=== PATIENT | male | born 1960 | race Caucasian/White ===

== ENCOUNTER 2023-11-04 05:34 | Observation (INO) | payer BC ==
[2023-10-21 15:10] VITALS: BMI 42.2
[2023-11-04] MEDS ORDERED: Tranexamic Acid 1,000 MG/10 ML VIAL ONE ×3 (06:00→11:23)
[2023-11-04] MEDS ORDERED: Sodium Chloride 0.9% 0 ML ONE (06:00)
[2023-11-04] MEDS ORDERED: Vancomycin (BATCH) 2 GM in Premix 1 BAG IVPB SCH ×2 (06:15→20:00)
[2023-11-04] MEDS ORDERED: Bupivacaine 0.25% HCL 30 ML VIAL ONE (06:24)
[2023-11-04] MEDS ORDERED: Lidocaine 2% PF 5 ML VIAL ONE (06:35)
[2023-11-04] MEDS ORDERED: PROPOFOL 20 ML ONE ×2 (06:35→06:42)
[2023-11-04] MEDS ORDERED: fentaNYL PF 100 MCG/2 ML SYRINGE ONE (06:36)
[2023-11-04] MEDS ORDERED: fentaNYL 50 mcg/mL 1 mL Vial ONE ×4 (07:05→11:21)
[2023-11-04] MEDS ORDERED: Midazolam HCl 2 mg/2 ml Vial ONE (07:06)
[2023-11-04] MEDS ORDERED: CEFAZOLIN 2 GM VIAL ONE (07:17)
[2023-11-04] MEDS ORDERED: Sodium Chloride 0.9% 100 ML ONE (07:17)
[2023-11-04] MEDS ORDERED: Clindamycin/D5W 900 mg/50 ml Premix Bag ONE (07:21)
[2023-11-04] MEDS ORDERED: Clindamycin/D5W 600 mg/50 ml Premix Bag ONE (07:30)
[2023-11-04] MEDS ORDERED: ePHEDrine Sulfate 50 MG/10 ML VIAL ONE (07:32)
[2023-11-04] MEDS ORDERED: PHENYLEPHRINE-NS 100 MCG/ML 10 ML SYRINGE ONE (07:32)
[2023-11-04] MEDS ORDERED: fentaNYL 50 mcg/mL 1 mL Vial SLOW IVP PRN (07:55)
[2023-11-04] MEDS ORDERED: Ondansetron PF 4 MG/2 ML Vial IVP PRN ×2 (08:00→10:47)
[2023-11-04] MEDS ORDERED: Promethazine HCl 25 MG/ML VIAL IM PRN ×2 (08:00→10:47)
[2023-11-04] MEDS ORDERED: traMADol HCl 50 MG TAB PO PRN ×2 (08:00)
[2023-11-04] MEDS ORDERED: Zolpidem Tartrate 5 MG TAB PO PRN ×2 (08:00→10:47)
[2023-11-04] MEDS ORDERED: HYDROcodone/Acetaminophen 10/325 mg Tablet PO PRN ×2 (08:00)
[2023-11-04] MEDS ORDERED: Ropivacaine 0.2% 550 ML 550 ML NERVE BLCK SCH (08:00)
[2023-11-04] MEDS ORDERED: Glycopyrrolate 0.2 MG/ML 5 ML SYRINGE ONE (08:15)
[2023-11-04] MEDS ORDERED: Atropine Sulfate 0.4 mg/1 ml Vial ONE (08:19)
[2023-11-04] MEDS ORDERED: Bupivacaine PF 0.5% 30 ML VIAL ONE (09:53)
[2023-11-04] MEDS ORDERED: EPINEPHrine 1 MG/ML VIAL ONE (09:53)
[2023-11-04] MEDS ORDERED: Lidocaine 1% (PF) 30 ML VIAL ONE (09:53)
[2023-11-04] MEDS ORDERED: Dexamethasone 4 mg/ml Vial ONE (10:09)
[2023-11-04] MEDS ORDERED: Ondansetron PF 4 MG/2 ML Vial ONE (10:09)
[2023-11-04] MEDS ORDERED: diphenhydrAMINE 25 MG CAP PO PRN (10:47)
[2023-11-04] MEDS ORDERED: Acetaminophen 325 MG TAB PO PRN (10:47)
[2023-11-04] MEDS ORDERED: ALPRAZolam 0.5 MG TAB PO PRN (10:49)
[2023-11-04] MEDS ORDERED: Tranexamic Acid 1,000 MG in Sodium Chloride 0.9% 100 ML IVPB SCH (11:00)
[2023-11-04] MEDS: Ketorolac Tromethamine 30 MG (1 mL) VIAL IVP SCH ×3 (13:48→23:36)
[2023-11-04] MEDS: Clindamycin/D5W 900 MG in Premix 1 BAG IVPB SCH ×2 (13:48→19:40)
[2023-11-04] MEDS: Sodium Chloride 0.9% 1,000 ML IV SCH ×2 (13:49→20:28)
[2023-11-04] MEDS: Senokot S 8.6-50 MG TAB PO SCH (20:28)
[2023-11-04] MEDS: Ferrous Gluconate 324 MG TAB PO SCH (20:28)
[2023-11-04] MEDS: Aspirin 81 mg Enteric Coated Tablet PO SCH (20:28)
[2023-11-04] MEDS ORDERED: Nebivolol HCl 5 MG TAB PO SCH (21:00)
[2023-11-05] MEDS: Ketorolac Tromethamine 30 MG (1 mL) VIAL IVP SCH ×2 (04:32→12:08)
[2023-11-05] MEDS: Sodium Chloride 0.9% 1,000 ML IV SCH (04:33)
[2023-11-05 04:48] LABS: Hematocrit 41.9 % (42.0-52.0); Hemoglobin 13.5 g/dL (14.0-18.0); Mean Corpuscular HGB CONC 32.2 g/dL (32.0-36.0); Mean Corpuscular Hemoglobin 30.1 pg (27.0-31.0); Mean Corpuscular Volume 93.5 fl (78.0-98.0); Mean Platelet Volume 10.4 fL (7.4-10.4); Platelet Count 272 10x3/uL (130-400); RBC Distribution Width 12.9 % (11.5-14.5); Red Blood Cell (RBC) Count 4.48 mill/uL (4.70-6.10); White Blood Cell (WBC) Count 15.4 10x3/uL (4.8-10.8)
[2023-11-05 08:44] VITALS: TEMP 97.9
[2023-11-05] MEDS ORDERED: Multivitamin W/ Minerals 1 TAB PO SCH (09:00)
[2023-11-05] MEDS: Aspirin 81 mg Enteric Coated Tablet PO SCH (09:09)
[2023-11-05] MEDS: Senokot S 8.6-50 MG TAB PO SCH (09:09)
[2023-11-05] MEDS: Ferrous Gluconate 324 MG TAB PO SCH (09:09)
[2023-11-05 11:49] VITALS: BP 121/77
== END 2023-11-05 12:33 | disposition home or self-care (01) ==
LOC: SDC 05:34 → SURG A 10:47 → SJJU 12:56
PROVIDERS: ADMIT Orthopaedic Surgery; ATTEND Orthopaedic Surgery
PROC: 0SRC0JZ Replacement of Right Knee Joint with Synthetic Substitute, Open Approach (ICD-10-PCS; principal; 2023-11-04)
DX: M17.31 Unilateral post-traumatic osteoarthritis, right knee (principal); I10 Essential (primary) hypertension; F32.A Depression, unspecified; Z87.81 Personal history of (healed) traumatic fracture; Z86.718 Personal history of other venous thrombosis and embolism; Z90.89 Acquired absence of other organs; Z98.890 Other specified postprocedural states; Z79.899 Other long term (current) drug therapy; Z88.0 Allergy status to penicillin; Z88.5 Allergy status to narcotic agent
CPT/HCPCS: 36415; 85027; 86850; 86900; 86901; 96366; 96375; 96376; A4306; C1713; C1776; G0378; J0171; J0461; J0665; J1100; J1885; J2001; J2250; J2405; J2704; J2795; J3010; J3370; J3490; J7050